=== PATIENT | female | born 2000 | race Caucasian/White ===

== ENCOUNTER 2021-12-28 11:10 | Emergency (ER) | payer MEDICAID ==
[~2021-12-28] VITALS: Ht 160 cm; Wt 52.2 kg
--- NOTE | 2021-12-28 12:30 | NUR ---
PT ROBERT ACLS, PT HAS C/O LEFT GROIN PAIN 09/05. PT STATES SHE HAS HAD PAST OVAIRIAN CYSTS RUPTURE AND NOTED THE SAME S/S. PT IS AAOX4. ON R/A. NORMAL S2S2 NOTED. PT HAS N/V AT THIS TIME. DISTAL PULSES NORMAL, SKIN COOL AND DIAPHORETIC, CAP REFILL < 3SECS, NO PERIPHERAL EDEMA. SIDERAILS UP X2.
[2021-12-28 12:31] VITALS: BP_SYST 110
--- NOTE | 2021-12-28 12:35 | NUR ---
DR. VALDOVINOS AT BEDSIDE TO ASSESS PT.
[2021-12-28] MEDS ORDERED: MORPHINE 4 MG INJ. 4 MG/ML VIAL IVP ONE (12:45)
--- NOTE | 2021-12-28 12:59 | NUR ---
MORPHINE 4MG IVP GIVEN FOR LEFT LOWER AB/GROIN PAIN SHARP 09/05. PT SBP 94, NS 1000 ML BOLUS INITIATED, TO BE COMPLETED AT 1359.
[2021-12-28] MEDS ORDERED: NACL 0.9% 1,000 ML IV ONE (13:00)
[2021-12-28] MEDS ORDERED: IBUP-1969 PO (14:01)
[2021-12-28] MEDS ORDERED: HYDR-3917 PO (14:01)
[2021-12-28] MEDS ORDERED: ONDA-8 TL (14:01)
--- NOTE | 2021-12-28 14:12 | NUR ---
URINE OBTAINED, PT DENIES PAIN AT THIS TIME.
[2021-12-28] MEDS ORDERED: CEPH-548 PO (14:27)
--- NOTE | 2021-12-28 14:30 | NUR ---
URINE DIPSTICK REPORTED TO DR. CURRAN.
[2021-12-28 15:10] VITALS: BP_SYST 111
== END 2021-12-28 15:10 | disposition home or self-care (01) ==
LOC: SED 11:10
DX: R10.32 Left lower quadrant pain (principal); R11.10 Vomiting, unspecified; Z79.899 Other long term (current) drug therapy
CPT/HCPCS: 99283; 96374; 96361; 81025; J2270; J7030